=== PATIENT | male | born 1975 | race Caucasian/White ===

== ENCOUNTER 2016-10-29 16:03 | Emergency (ER) | payer SELFPAY ==
--- NOTE | 2016-10-29 16:19 | ER Document Report ---
ED Medical Screen (RME) - General Stated Complaint: HEAD PAIN Time seen by provider: 16:15 Mode of Arrival: Ambulatory Notes: 41-year-old male presents to ED for head injury wanted to both lower fell on the top of his head. Denies loss of consciousness or nausea and vomiting. Headache is in 3 out of 5. He has a laceration 2.2 cm to the top right of his head. No active bleeding at this moment. States he had his last tetanus 2 years ago. I have greeted and performed a rapid initial assessment of this patient. A comprehensive ED assessment and evaluation of the patient, analysis of test results and completion of medical decision making process will be conducted by an additional ED providers. TRAVEL OUTSIDE OF THE [place] IN LAST 30 DAYS: No - Related Data Allergies/Adverse Reactions: No Known Allergies Allergy (Verified 12/09/11 09:23) Past Medical History - Immunizations Hx Diphtheria, Pertussis, Tetanus Vaccination: Yes Physical Exam - Vital signs Vitals: Temp Pulse Resp BP Pulse Ox 98.5 F 101 H 16 137/93 H 97 10/29/16 16:14 10/29/16 16:14 10/29/16 16:14 10/29/16 16:14 10/29/16 16:14 Course - Vital Signs Vital signs: Temp Pulse Resp BP Pulse Ox 98.5 F 101 H 16 137/93 H 97 10/29/16 16:14 10/29/16 16:14 10/29/16 16:14 10/29/16 16:14 10/29/16 16:14
[2016-10-29] MEDS ORDERED: TRAMADOL HCL 50 MG TABLET PO ONE (17:36)
--- NOTE | 2016-10-29 17:39 | ER Document Report ---
ED General - General Chief Complaint: Head Injury Stated Complaint: HEAD PAIN Mode of Arrival: Ambulatory Notes: 41-year-old male here with complaints of some mild head pain after a piece of 2 x 4 wood fell onto his head 2 hours ago. He denies any loss of consciousness nausea vomiting bizarre behavior. His family at bedside advises that he has been acting appropriately. He does not take any blood thinners. His last tetanus was one to 2 years ago. TRAVEL OUTSIDE OF THE [place] IN LAST 30 DAYS: No - Related Data Allergies/Adverse Reactions: No Known Allergies Allergy (Verified 12/09/11 09:23) Past Medical History - Social History Smoking Status: Current Every Day Smoker Chew tobacco use (# tins/day): No Frequency of alcohol use: None Drug Abuse: None Family History: Reviewed & Not Pertinent Patient has suicidal ideation: No Patient has homicidal ideation: No Renal/ Medical History: Denies: Hx Peritoneal Dialysis - Immunizations Hx Diphtheria, Pertussis, Tetanus Vaccination: Yes Review of Systems - Review of Systems Notes: See history of present illness for pertinent positive review of systems; otherwise all review of systems have been reviewed and are negative Physical Exam - Vital signs Vitals: Temp Pulse Resp BP Pulse Ox 98.5 F 101 H 16 137/93 H 97 10/29/16 16:14 10/29/16 16:14 10/29/16 16:14 10/29/16 16:14 10/29/16 16:14 - Notes Notes: PHYSICAL EXAMINATION: GENERAL: Well-appearing and in no acute distress. HEAD: There is a linear simple 2 cm laceration without foreign body just right of midline near the occiput with no active bleeding and no significant soft tissue scalp swelling. EYES: Pupils equal round and reactive to light, extraocular movements intact, sclera anicteric, conjunctiva are normal. ENT: nares patent, oropharynx clear without exudates. Moist mucous membranes. NECK: Normal range of motion, supple without lymphadenopathy LUNGS: CTAB and equal. No wheezes rales or rhonchi. HEART: Regular rate and rhythm without murmurs ABDOMEN: Soft, no tenderness. No guarding, no rebound EXTREMITIES: Normal range of motion, no pitting edema. No cyanosis. NEUROLOGICAL: Cranial nerves grossly intact. Normal sensory/motor exams. Normal steady gait without ataxia. PSYCH: Normal mood, normal affect. SKIN: Warm, Dry, normal turgor, no rashes or lesions noted Course - Re-evaluation Re-evalutation: 10/29/16 17:37 MEDICAL DECISION MAKING: Low clinical suspicion for head bleed/skull fracture He has a normal neurological exam and prefers catina for closure Will give dose of pain medication as well Patient understands and agrees to the plan of care - Vital Signs Vital signs: Temp Pulse Resp BP Pulse Ox 98.5 F 101 H 16 137/93 H 97 10/29/16 16:14 10/29/16 16:14 10/29/16 16:14 10/29/16 16:14 10/29/16 16:14 Procedures - Laceration/Wound Repair Right Head Time completed: 18:05 Wound length (cm): 2 Wound's Depth, Shape: Superficial Laceration pre-procedure: Shur-Clens applied Anesthetic type: Other - Patient declined numbing medication Irrigated w/ Saline (mLs): 1,000 - irrigated with water Wound Repaired With: [place] - 5 catina placed Discharge - Discharge Clinical Impression: Laceration of scalp Qualifiers: Encounter type: initial encounter Qualified Code(s): S01.01XA - Laceration without foreign body of scalp, initial encounter Condition: Good Disposition: HOME, SELF-CARE Instructions: Laceration Care ([facility]) Additional Instructions: You were seen in the emergency department at [facility]. Your catina need to be removed by a healthcare provider in 7-10 days. If you were given any sedating medications (such as your prescribed tramadol), be sure not to operate heavy machinery (example - driving) and be sure you are not too sedated to walk appropriately. Please followup with your primary physician in the next few days for further management/evaluation. Please return to the emergency department for worsening of symptoms or any symptom that you deem to be concerning or life-threatening. Thank you for allowing us to be part of your care. Prescriptions: Tramadol HCl 50 mg PO BIDP PRN #15 tablet PRN Reason: For Pain
[2016-10-29 18:25] VITALS: BP 133/97
== END 2016-10-29 18:25 | disposition home or self-care (01) ==
LOC: ER 16:03
PROC: 0HQ0XZZ Repair Scalp Skin, External Approach (ICD-10-PCS; principal; 2016-10-29)
DX: S01.01XA Laceration without foreign body of scalp, initial encounter (principal); R51 Headache; W22.8XXA Striking against or struck by other objects, initial encounter; F17.210 Nicotine dependence, cigarettes, uncomplicated
CPT/HCPCS: 99282

== ENCOUNTER 2016-11-08 19:32 | Emergency (ER) | payer SELFPAY ==
--- NOTE | 2016-11-08 19:46 | ER Document Report ---
ED Medical Screen (RME) - General Stated Complaint: STAPLE REMOVAL Notes: Here for staple removal. I have greeted and performed a rapid initial assessment of this patient. A comprehensive ED assessment and evaluation of the patient, analysis of test results and completion of the medical decision making process will be conducted by additional ED providers. TRAVEL OUTSIDE OF THE [place] IN LAST 30 DAYS: No - Related Data Allergies/Adverse Reactions: No Known Allergies Allergy (Verified 11/08/16 19:45) Past Medical History - Past Medical History Cardiac Medical History: Reports: Hx Hypertension Renal/ Medical History: Denies: Hx Peritoneal Dialysis - Immunizations Hx Diphtheria, Pertussis, Tetanus Vaccination: Yes Physical Exam - Vital signs Vitals: Temp Pulse Resp BP Pulse Ox 98.2 F 98 16 124/93 H 95 11/08/16 19:44 11/08/16 19:44 11/08/16 19:44 11/08/16 19:44 11/08/16 19:44 Course - Vital Signs Vital signs: Temp Pulse Resp BP Pulse Ox 98.2 F 98 16 124/93 H 95 11/08/16 19:44 11/08/16 19:44 11/08/16 19:44 11/08/16 19:44 11/08/16 19:44
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
[2016-11-08 22:37] VITALS: BP 146/91
== END 2016-11-08 22:40 | disposition home or self-care (01) ==
LOC: ER 19:32
DX: Z48.02 Encounter for removal of sutures (principal)

== ENCOUNTER 2017-08-08 17:18 | Emergency (ER) | payer OTHER ==
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
[2017-08-08 19:18] VITALS: BP 142/102
== END 2017-08-08 19:16 | disposition home or self-care (01) ==
LOC: ER 17:18
DX: M25.511 Pain in right shoulder (principal); M25.571 Pain in right ankle and joints of right foot; V43.62XA Car passenger injured in collision with other type car in traffic accident, initial encounter; I10 Essential (primary) hypertension
CPT/HCPCS: 99284; 73610; 73030; L3650

== ENCOUNTER 2017-11-07 10:28 | Emergency (ER) | payer OTHER ==
--- NOTE | 2017-11-07 11:20 | ER Document Report ---
ED Medical Screen (RME) - General Chief Complaint: Low Back Pain Stated Complaint: BACK PAIN Time Seen by Provider: 11/07/17 11:18 Mode of Arrival: Ambulatory Information source: Patient TRAVEL OUTSIDE OF THE [place] IN LAST 30 DAYS: No - HPI Patient complains to provider of: lbp Onset: Other - pt. has had increasing LBP (mostly R-sided) which is now radiating down his R leg. He is not able to sleep at night. - Related Data Allergies/Adverse Reactions: No Known Allergies Allergy (Verified 11/07/17 10:30) Past Medical History - Social History Frequency of alcohol use: None Drug Abuse: Marijuana - Past Medical History Cardiac Medical History: Reports: Hx Hypertension - No home meds (10/27) Renal/ Medical History: Denies: Hx Peritoneal Dialysis - Immunizations Hx Diphtheria, Pertussis, Tetanus Vaccination: Yes Physical Exam - Vital signs Vitals: Temp Pulse Resp BP Pulse Ox 98.4 F 80 18 152/107 H 100 11/07/17 10:32 11/07/17 10:32 11/07/17 10:32 11/07/17 10:32 11/07/17 10:32 Course - Vital Signs Vital signs: Temp Pulse Resp BP Pulse Ox 98.4 F 80 18 152/107 H 100 11/07/17 10:32 11/07/17 10:32 11/07/17 10:32 11/07/17 10:32 11/07/17 10:32
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
[2017-11-07] MEDS ORDERED: DEXAMETHASONE SOD PHOS INJ 10 MG/1 ML VIAL IM ONE (12:13)
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
[2017-11-07 12:31] VITALS: BP 140/99
== END 2017-11-07 12:31 | disposition home or self-care (01) ==
LOC: ER 10:28
DX: M51.17 Intervertebral disc disorders with radiculopathy, lumbosacral region (principal); M51.16 Intervertebral disc disorders with radiculopathy, lumbar region; G89.29 Other chronic pain; F17.200 Nicotine dependence, unspecified, uncomplicated; F12.10 Cannabis abuse, uncomplicated; I10 Essential (primary) hypertension
CPT/HCPCS: 99283; 96372; 72131; J1100

== ENCOUNTER 2017-12-26 13:45 | Emergency (ER) | payer SELFPAY ==
[2017-12-26] MEDS ORDERED: KETOROLAC TROMETHAMINE INJ/PF 30 MG/1 ML SDV IM ONE (15:00)
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
[2017-12-26 16:12] VITALS: BP 134/105
== END 2017-12-26 16:10 | disposition home or self-care (01) ==
LOC: ER 13:45
DX: G89.29 Other chronic pain (principal); M54.41 Lumbago with sciatica, right side; M25.511 Pain in right shoulder; V43.62XS Car passenger injured in collision with other type car in traffic accident, sequela; I10 Essential (primary) hypertension; L98.9 Disorder of the skin and subcutaneous tissue, unspecified
CPT/HCPCS: 99283; 96372; J1885

== ENCOUNTER 2020-02-08 11:46 | Emergency (ER) | payer SELFPAY ==
[2020-02-08 11:52] VITALS: BP 141/100
--- NOTE | 2020-02-08 11:54 | ER Document Report ---
ED Extremity Problem, Lower - General Chief Complaint: Knee Pain Stated Complaint: RIGHT KNEE PAIN Time Seen by Provider: 02/08/20 11:48 Primary Care Provider: [facility] [Provider Group] - Follow up as needed Mode of Arrival: Ambulatory Information source: Patient Notes: 44-year-old male presented to ED for complaint of right knee for couple months. He states it is gradually gotten worse till now he cannot kneel down to do a job of throwing. He states when he bends his knee it feels like it swollen above the knee. He is alert oriented respirations regular nonlabored speaking in full sentences he is able to walk with a even steady gait. TRAVEL OUTSIDE OF THE [place] IN LAST 30 DAYS: No - HPI Patient complains to provider of: Pain, Swelling Location: Knee - Right Occurred: Other - Rossana months Onset/Duration: Gradual Quality of pain: Achy, Sharp Severity: Moderate Pain Level: 4 Recent injury: No Associated symptoms: Painful ambulation Exacerbated by: Movement, Walking, Other Relieved by: Elevation - Kneeling, Ice - Related Data Allergies/Adverse Reactions: No Known Allergies Allergy (Verified 12/26/17 13:47) Past Medical History - General Information source: Patient - Social History Smoking Status: Current Every Day Smoker Cigarette use (# per day): Yes - ppd Smoking Education Provided: Yes - 4min Frequency of alcohol use: Occasional Drug Abuse: Marijuana Occupation: [employer] Lives with: Alone Family History: Reviewed & Not Pertinent Patient has suicidal ideation: No Patient has homicidal ideation: No - Past Medical History Cardiac Medical History: Reports: Hx Hypertension - No home meds (10/27) Pulmonary Medical History: Reports: None EENT Medical History: Reports: None Neurological Medical History: Reports: None Endocrine Medical History: Reports: None Renal/ Medical History: Reports: None Malignancy Medical History: Reports None GI Medical History: Reports: None Musculoskeletal Medical History: Reports Hx Musculoskeletal Deformity Skin Medical History: Reports None Psychiatric Medical History: Reports: None Traumatic Medical History: Reports: None Surgical Hx: Negative Past Surgical History: Reports: None - Immunizations Immunizations up to date: Yes Hx Diphtheria, Pertussis, Tetanus Vaccination: Yes Review of Systems - Review of Systems Constitutional: No symptoms reported EENT: No symptoms reported Cardiovascular: No symptoms reported Respiratory: No symptoms reported Gastrointestinal: No symptoms reported Genitourinary: No symptoms reported Male Genitourinary: No symptoms reported Musculoskeletal: Joint pain - Pain and swelling to the right knee Skin: No symptoms reported Hematologic/Lymphatic: No symptoms reported Neurological/Psychological: No symptoms reported Physical Exam - Vital signs Vitals: Temp Pulse Resp BP Pulse Ox 98.0 F 86 16 141/100 H 99 02/08/20 11:50 02/08/20 11:50 02/08/20 11:50 02/08/20 11:50 02/08/20 11:50 Interpretation: Normal - General General appearance: Appears well, Alert - HEENT Head: Normocephalic, Atraumatic Eyes: Normal Pupils: PERRL - Respiratory Respiratory status: No respiratory distress Chest status: Nontender Breath sounds: Normal Chest palpation: Normal - Cardiovascular Rhythm: Regular Heart sounds: Normal auscultation Murmur: No - Abdominal Inspection: Normal Distension: No distension Bowel sounds: Normal Tenderness: Nontender Organomegaly: No organomegaly - Back Back: Normal, Nontender - Extremities General upper extremity: Normal inspection, Nontender, Normal color, Normal ROM, Normal temperature General lower extremity: Normal inspection, Nontender, Normal color, Normal ROM, Normal temperature, Normal weight bearing. No: Troy's sign Thigh: No: Unable to bear weight Knee: Tender, Pain with ROM, Patellar tendon intact. No: Abrasion, Dislocation, Drawer's test instability, Ecchymosis, Instability, Joint effusion, Laceration, Laxity with valgus stress, Laxity with varus stress, Popliteal fossa tender - Neurological Neuro grossly intact: Yes Cognition: Normal Orientation: AAOx4 Rickman Coma Scale Eye Opening: Spontaneous Rickman Coma Scale Verbal: Oriented Adam Coma Scale Motor: Obeys Commands Adam Coma Scale Total: 15 Speech: Normal Motor strength normal: LUE, RUE, LLE, RLE Sensory: Normal - Psychological Associated symptoms: Normal affect, Normal mood - Skin Skin Temperature: Warm Skin Moisture: Dry Skin Color: Normal Course - Re-evaluation Re-evalutation: 02/08/20 13:22 Reviewed x-ray results with patient and written report of x-ray given to patient to follow-up with orthopedics. He does have arthritis with a very mild joint effusion. He was instructed to please follow-up with orthopedics to see if there was any treatment to help him with his pain to his knee. He was also given knee immobilizer while in the emergency room for pain relief and given exercises as well as instructions for elevation ice ibuprofen and Tylenol. Patient was able to verbalize understanding and agreement with treatment plan and patient was discharged home. - Vital Signs Vital signs: Temp Pulse Resp BP Pulse Ox 98.0 F 86 16 141/100 H 99 02/08/20 11:51 02/08/20 11:50 02/08/20 11:50 02/08/20 11:50 02/08/20 11:50 - Diagnostic Test Radiology reviewed: Image reviewed, Reports reviewed Procedures - Immobilization Right Knee Time completed: 13:00 Pre-Proc Neuro Vasc Exam: Normal Immobilizer type: Knee immobilizer Performed by: PCT Post-Proc Neuro Vasc Exam: Normal Alignment checked and good: Yes Discharge - Discharge Clinical Impression: Arthritis of knee, right, Effusion, right knee Condition: Stable Disposition: HOME, SELF-CARE Additional Instructions: Arthritis Your symptoms are due to arthritis. Arthritis is an inflammation of the joints. There are many types -- osteoarthritis (due to "wear and tear"), auto- immmune arthritis (such as rheumatoid, lupus, Marck's, and others), and crystal-induced arthritis (such as gout and pseudogout). The physician's examination, combined with laboratory tests, will determine the cause of your arthritis. All types of arthritis are treated with antiinflammatory medications. Other medication may be required for special types of arthritis, or if your problem does not respond to the antiinflammatory medicine. Local warmth may be helpful. Move the involved joints through the full range of motion daily. Mild exercise is usually still possible for most persons with arthritis (ask your physician). Swimming provides good exercise without damaging the joints. Contact the physician if you are worsening in any way. Knee Effusion You have a fluid collection in the knee joint, called an effusion. This fluid build up can occur from irritation of the synovial membrane lining the knee joint or from a more serious injury to the knee. Irritation of the membrane can occur from excessive, repetitive knee activitiy, like kneeling or squatting for extended periods or even just excessive walking, jogging, or skiing. Effusions also can occur with infections in the joint and with some arthritic conditions, especially gout. Fluid collections in these situations are usually yellow in color and either clear or cloudy in appearance. Significant injury to the knee can result in fluid collection which is partly or entirely blood and this condition is known as a hemarthrosis of the knee joint. If the fluid collection is not too large and/or painful, it can be managed conservatively with rest, ice packs, and anti-inflammatory and pain medications as needed. If the fluid collection is large and very painful, the knee joint can be drained (aspirated) by a relatively minor procedure of inserting a needle in the joint and removing some or all of the fluid present. If your knee was aspirated, you should rest it as much as possible for a few days, keep a pressure dressing around the knee and apply ice packs for at least 48 - 72 hours. If there are signs of developing infection such as heat and redness of the knee, fever, etc. you should return immediately for a recheck. Knee Immobilizing Splint The knee immobilizing splint will protect the injury while healing begins. This type of splint does not allow the knee to bend at all. No running or sports will be possible. If the splint allows painfree walking, it's giving adequate protection. If there is still significant pain, crutches may be needed as well. Don't do anything that hurts. Adjusted the splint, if necessary. The stiffeners on the sides are attach ed with Velcro, so they can be easily moved to adjust for thigh and calf size. If you need help with these adjustments, come back. You will lose muscle strength in the thigh while using this splint. The doctor will advise you if it's safe to do isometric knee exercises while you use it. Knee Exercise Program It's important to strengthen the muscles around the knee. This protects the injured area and stabilizes a knee that's been loosened by ligament injury. EARLY - Even when motion of the knee is painful (even when wearing a splint), you can begin isometric "quads" exercises. While sitting, hold the knee out, and contract the muscles to stiffen it. It shouldn't be straightened all the way -- stiffen it in a slightly-bent position. Lift the leg and draw a "T" with your foot, up to 100 times. When it becomes easy, add a weight on your foot. LATE - When the doctor advises you, you can begin moving the knee against resistance. The front muscles (quadriceps) are most important. While sitting at a [employer], straighten the knee forcefully while pushing a weight up with your ankle. Start with five to 10 pounds. Do 10 to 20 repetitions, increasing the weight as tolerated. Don't use more weight than is comfortable! Over a few weeks, work up to 35 to 50 pounds. Athletes should try to reach 70 to 90 pounds. Acetaminophen Acetaminophen may be taken for pain relief or fever control. It's much safer than aspirin, offering a wider range of "safe" dosages. It is safe during . Some brand names are Tylenol, Panadol, Datril, Anacin 3, Tempra, and Liquiprin. Acetaminophen can be repeated every four hours. The following are maximum recommended dosages: WEIGHT Dose Drops Elixir Chewable(80mg) (LBS.) drprs=droppers tsp=teaspoon 6 40 mg .4 ml (1/2) 6-11 80 mg .8 ml (full) 1/2 tsp 1 tab 12-16 120 mg 1 1/2 drprs 3/4 tsp 1 1/2 tabs 17-23 160 mg 2 drprs 1 tsp 2 tabs 24-30 240 mg 3 drprs 1 1/2 tsp 3 tabs 30-35 320 mg 2 tsp 4 tabs 36-41 360 mg 2 1/4 tsp 4 1/2 tabs 42-47 400 mg 2 1/2 tsp 5 tabs 48-53 480 mg 3 tsp 6 tabs 54-59 520 mg 3 1/4 tsp 6 1/2 tabs 60-64 560 mg 3 1/2 tsp 7 tabs 65-70 600 mg 3 3/4 tsp 7 1/2 tabs 71-76 640 mg 4 tsp 8 tabs 77-82 720 mg 4 1/2 tsp 9 tabs 83-88 800 mg 5 tsp 10 tabs >89 pounds or adults 650 mg to 900 mg Acetaminophen can be repeated every four hours. Maximum daily dose not to exceed 4000 mg. These maximum recommended dosages are slightly higher than the dosages written on the product container, but these dosages are very safe and well below the toxic dosage for acetaminophen. Ibuprofen Ibuprofen is an excellent, safe drug for pain control. In addition, it has potent antiinflammatory effects which are beneficial, especially in the treatment of injuries, arthritis, or tendonitis. It's best to take ibuprofen with food. Persons with ulcer disease or allergy to aspirin should notify their physician of this before taking ibuprofen. Take the medication exactly as prescribed. Don't take additional doses unless instructed to do so by your doctor. If you develop wheezing, shortness of breath, hives, faintness, stomach pain, vomiting, or dark black stools, return for re-evaluation at once. FOLLOW-UP CARE: If you have been referred to a physician for follow-up care, call the physicians office for an appointment as you were instructed or within the next two days. If you experience worsening or a significant change in your symptoms, notify the physician immediately or return to the Emergency Department at any time for re-evaluation. Forms: Elevated Blood Pressure, Smoking Cessation Education, Return to Work Referrals: [facility] ([facility] [Provider Group] - Follow up as needed
--- NOTE | 2020-02-08 12:25 | RADIOLOGY REPORT (SQ) ---
EXAM DESCRIPTION: KNEE RIGHT 4 VIEWS IMAGES COMPLETED DATE/TIME: 02/08/2020 12:09 pm REASON FOR STUDY: increasing pain and swelling COMPARISON: None. NUMBER OF VIEWS: Four views. TECHNIQUE: AP, lateral, and both oblique radiographic images acquired of the right knee. LIMITATIONS: None. FINDINGS: MINERALIZATION: Normal. BONES: No acute fracture or dislocation. No worrisome bone lesions. Mild medial joint space loss. Small tricompartment osteophytes. JOINT: Mild joint effusion. SOFT TISSUES: No soft tissue swelling. No radio-opaque foreign body. OTHER: No other significant finding. IMPRESSION: Mild joint effusion without evidence of acute bony abnormality. 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 TECHNICAL DOCUMENTATION: JOB ID: [id number] 2010 [employer]- All Rights Reserved Reading location - IP/workstation name: [email or web address]
== END 2020-02-08 13:00 | disposition home or self-care (01) ==
LOC: ER 11:46
DX: M17.11 Unilateral primary osteoarthritis, right knee (principal); M25.461 Effusion, right knee; M25.561 Pain in right knee; M79.89 Other specified soft tissue disorders; F17.210 Nicotine dependence, cigarettes, uncomplicated; I10 Essential (primary) hypertension
CPT/HCPCS: 99283; 99406

== ENCOUNTER 2020-09-15 10:14 | Emergency (ER) | payer SELFPAY ==
[2020-09-15] MEDS ORDERED: HYDROCODONE/ACETAMINOPHEN 5-325 MG TABLET PO ONE (11:41)
--- NOTE | 2020-09-15 12:08 | RADIOLOGY REPORT (SQ) ---
EXAM DESCRIPTION: KNEE LEFT 4 VIEW IMAGES COMPLETED DATE/TIME: 09/15/2020 11:58 am REASON FOR STUDY: injury COMPARISON: None. NUMBER OF VIEWS: Four views. TECHNIQUE: AP, lateral, and both oblique radiographic images acquired of the left knee. LIMITATIONS: None. FINDINGS: MINERALIZATION: Normal. BONES: Variant bipartite patella. There is no acute fracture or dislocation. JOINT: No joint effusion. The quadriceps and patellar tendon silhouettes are intact. SOFT TISSUES: No prepatellar soft tissue swelling. OTHER: Variant fabella. IMPRESSION: 1. Joint effusion without an associated acute osseous abnormality. If there is concern for internal derangement consider correlation with MRI. 2. Variant bipartite patella. TECHNICAL DOCUMENTATION: JOB ID: [id number] 2010 [employer]- All Rights Reserved Reading location - IP/workstation name: [email or web address]
--- NOTE | 2020-09-15 13:49 | RADIOLOGY REPORT (SQ) ---
EXAM DESCRIPTION: VENOUS UNILATERAL LOWER IMAGES COMPLETED DATE/TIME: 09/15/2020 1:33 pm REASON FOR STUDY: pain/swellin COMPARISON: None. TECHNIQUE: Dynamic and static silva scale and color images acquired of the left leg venous system. Se lected spectral images acquired with additional compression and augmentation maneuvers. The contralat eral common femoral vein and saphenofemoral junction were also imaged. Images stored on PACS. LIMITATIONS: None. FINDINGS: COMMON FEMORAL: Normal phasicity, compression and augmentation. No visualized echogenic ma terial on silva scale. No defects on color images. FEMORAL: Normal compression and augmentation. No visualized echogenic material on silva scale. No defe cts on color images. POPLITEAL: Normal compression, augmentation. No visualized echogenic material on silva scale. No defec ts on color images. CALF VESSELS: Normal compression, augmentation. No visualized echogenic material on silva scale. No de fects on color images. GSV and SSV: Normal compression, augmentation. No visualized echogenic material on silva scale. No def ects on color images. ANY DEEP VENOUS INSUFFICIENCY: Not evaluated. ANY EVIDENCE OF POPLITEAL CYST: No. OTHER: No other significant finding. CONTRALATERAL COMMON FEMORAL VEIN: Normal phasicity, compression and augmentation. No visualized echogenic material on silva scale. No de fects on color images. IMPRESSION: 1. NO EVIDENCE OF DVT OR SVT IN THE LEFT LEG. COMMENT: 1. The results of this examination were called to the emergency department provider on 09/15/2020. TECHNICAL DOCUMENTATION: JOB ID: [id number] 2010 [employer]- All Rights Reserved Reading location - IP/workstation name: [email or web address]
--- NOTE | 2020-09-15 14:04 | ER Document Report ---
ED Medical Screen (RME) - General Chief Complaint: Knee Pain Stated Complaint: LEFT KNEE PAIN,SWELLING Time Seen by Provider: 09/15/20 11:35 Mode of Arrival: Wheelchair Information source: Patient Notes: HPI; 44-year-old male presents to the emergency room complaining of left knee pain and left calf pain. States his knee has been bothering him for the past 3 weeks to a month denies any trauma or injury. States it is gotten worse since last night. States he was stepping up a stair did not know there was a stair missing he had to stretch far to get to the next step and he heard a sudden "pop" to his left calf. States he is able to walk but is painful. States this morning he is unable to bend his left knee. Has not taken any medications for his symptoms. PE: Alert and oriented x3. Lungs: Clear to auscultation without rales, rhonchi, wheezes. Heart: Regular rate rhythm without murmurs, rubs, gallops. Left knee is tender to palpation unable to fully flex and extend knee secondary to pain. Mild ballottement noted to the left knee. Left calf tenderness to palpation. Negative Homans. Unable to do full exam in triage. I have greeted and performed a rapid initial assessment of this patient. A comprehensive ED assessment and evaluation of the patient, analysis of test results and completion of the medical decision making process will be conducted by additional ED providers. I have specifically instructed the patient or family members with the patient to immediately return to any nursing staff should anything change in the patient's condition or with their chief complaint. TRAVEL OUTSIDE OF THE [place] IN LAST 30 DAYS: No - Related Data Allergies/Adverse Reactions: No Known Allergies Allergy (Verified 12/26/17 13:47) Past Medical History - Social History Frequency of alcohol use: None Drug Abuse: Marijuana - Past Medical History Cardiac Medical History: Reports: Hx Hypertension - No home meds (10/27) Renal/ Medical History: Denies: Hx Peritoneal Dialysis Musculoskeltal Medical History: Reports Hx Musculoskeletal Deformity - Immunizations Immunizations up to date: Yes Hx Diphtheria, Pertussis, Tetanus Vaccination: Yes Physical Exam - Vital signs Vitals: Temp Pulse Resp BP Pulse Ox 97.9 F 90 16 159/102 H 100 09/15/20 10:23 09/15/20 10:23 09/15/20 10:23 09/15/20 10:23 09/15/20 10:23 Course - Vital Signs Vital signs: Temp Pulse Resp BP Pulse Ox 97.9 F 90 16 159/102 H 100 09/15/20 10:23 09/15/20 10:23 09/15/20 10:23 09/15/20 10:23 09/15/20 10:23
--- NOTE | 2020-09-15 14:21 | ER Document Report ---
ED Extremity Problem, Lower - General Chief Complaint: Knee Pain Stated Complaint: LEFT KNEE PAIN,SWELLING Time Seen by Provider: 09/15/20 11:35 Primary Care Provider: VICKY TENORIO MD [ACTIVE STAFF] - Follow up as needed Mode of Arrival: Wheelchair Information source: Patient TRAVEL OUTSIDE OF THE [place] IN LAST 30 DAYS: No - HPI Notes: 44-year-old male presents to ED for evaluation of left knee pain worsening over the last several days. Patient reports that he believes he may have injured his knee earlier this month however reports yesterday he missed a step and felt a large popping sensation to the left knee. Patient states that he sustained sharp pain and cannot appropriately bear weight. Patient reports that he feels as though the knee will give out. He states that he has increased swelling especially to the inner aspect of the knee and pulling backward. Patient reports he worked for many years for [employer] and believes he may have residual damage. He denies any other trauma or injury sustained recently. [place] paresthesias. Denies calf pain or swelling. Denies fever or chills. Denies other complaints. - Related Data Allergies/Adverse Reactions: No Known Allergies Allergy (Verified 12/26/17 13:47) Past Medical History - General Information source: Patient - Social History Smoking Status: Current Every Day Smoker Frequency of alcohol use: None Drug Abuse: Marijuana Family History: Reviewed & Not Pertinent - Past Medical History Cardiac Medical History: Reports: Hx Hypertension - No home meds (10/27) Renal/ Medical History: Denies: Hx Peritoneal Dialysis Musculoskeletal Medical History: Reports Hx Musculoskeletal Deformity - Immunizations Immunizations up to date: Yes Hx Diphtheria, Pertussis, Tetanus Vaccination: Yes Review of Systems - Review of Systems Notes: Constitutional: Negative for fever. HENT: Negative for sore throat. Eyes: Negative for visual changes. Cardiovascular: Negative for chest pain. Respiratory: Negative for shortness of breath. Gastrointestinal: Negative for abdominal pain, vomiting or diarrhea. Genitourinary: Negative for dysuria. Musculoskeletal: Negative for back pain. + for joint pain. Skin: Negative for rash. Neurological: Negative for headaches, weakness or numbness. 10 point ROS negative except as marked above and in HPI. Physical Exam - Vital signs Vitals: Temp Pulse Resp BP Pulse Ox 97.9 F 90 16 159/102 H 100 09/15/20 10:23 09/15/20 10:23 09/15/20 10:23 09/15/20 10:23 09/15/20 10:23 General: No apparent distress. Alert and oriented x 3. Skin: Intact without any jaundice, pallor, or erythema. Warm and dry. Musculoskeletal: Left Knee: No erythema, ecchymosis, rashes, or deformity. There is to palpation along anterior joint line as well as medial aspect of patella. Associated joint effusion without erythema or warmth. FROM 0-135* with discomfort. Knee joint is stable. Neg ant/post drawersigns. Neg José Manuel's. + laxity with varus/valgus stress. No popliteal fossa tenderness. No calf tenderness. Toes are warm and mobile with brisk capillary refill. No hip or ankle tenderness during range of motion. 2+ Dorsalis pedis pulses bilaterally. Neuro: GCS 15. Course - Re-evaluation Re-evalutation: 09/15/20 19:20 -year-old male presents to ED for evaluation of left knee pain worsening over the last several days. Patient reports he stepped incorrectly yesterday and sustained increased pain to the left knee. Reports there is swelling associated. Patient was evaluated with Doppler ultrasound of the left lower extremity which shows no evidence of DVT or SVT at this time. Patient had this ordered from triage. I have low suspicion as patient has minimal risk factors for a DVT. Patient was evaluated with x-rays of the knee. X-ray showed no evidence of fracture or dislocation. Imaging was discussed with patient. I advised that ligamentous or meniscus tear cannot be ruled out. Patient was given a knee immobilizer and advised to rest, ice, and elevate the extremity. Even crutches to be nonweightbearing. Patient is treated with tordol for pain. Patient is given a referral to orthopedics for followup. - Vital Signs Vital signs: Temp Pulse Resp BP Pulse Ox 98.2 F 88 16 147/98 H 99 09/15/20 15:05 09/15/20 15:05 09/15/20 15:05 09/15/20 15:05 09/15/20 15:05 - Diagnostic Test Radiology reviewed: Image reviewed Radiology results interpreted by me: 09/15/20 19:21 Doppler ultrasound was obtained which is negative for DVT and SVT at this time. X-rays of the left knee were obtained which do show a joint effusion. Discharge - Discharge Clinical Impression: Sprain of left patella Qualifiers: Encounter type: initial encounter Qualified Code(s): S83.8X2A - Sprain of other specified parts of left knee, initial encounter Condition: Stable Disposition: HOME, SELF-CARE Instructions: Use of Crutches ([facility]), Ice & Elevation ([facility]), Suspected Internal Knee Injury ([facility]), Knee Immobilizing Splint ([facility]) Prescriptions: Ketorolac Tromethamine [Toradol 10 mg Tablet] 10 mg PO Q8 #15 tablet Referrals: VICKY TENORIO MD [ACTIVE STAFF] - Follow up as needed
[2020-09-15 15:05] VITALS: BP 147/98
== END 2020-09-15 15:05 | disposition home or self-care (01) ==
LOC: ER 10:14
DX: S83.8X2A Sprain of other specified parts of left knee, initial encounter (principal); M25.562 Pain in left knee; M79.89 Other specified soft tissue disorders; W10.9XXA Fall (on) (from) unspecified stairs and steps, initial encounter; F17.200 Nicotine dependence, unspecified, uncomplicated; I10 Essential (primary) hypertension
CPT/HCPCS: 93971; 99284